=== PATIENT | female | born 1985 | race Two or more races ===

== ENCOUNTER 2021-01-18 21:27 | Inpatient (IN) | payer MEDICAID ==
[~2021-01-18] VITALS: Ht 157.5 cm; Wt 62.6 kg
[2021-01-18 22:20] VITALS: BP 97/61
--- NOTE | 2021-01-18 22:20 | NUR ---
MS OPHTHALMOLOGY ASSISTANT NOTE PT TRANSPORTED VIA GURNEY TO UNIT AT THIS TIME. PT IS ON BEDREST. PT STABLE ON ROOM AIR. NO SOB OR S/S OF RESPIRATORY DISTRESS NOTED. PT DENIES ANY PAIN OR DISCOMFORT AT THIS TIME. PT'S SKIN IS INTACT. IV ACCESS NOTED IN RAC #20, INTACT AND PATENT. PT ORIENTED TO STAFF, ROOM, AND UNIT. SAFETY MEASURES MAINTAINED. BED IN LOWEST LOCKED POSITION, HOB ELEVATED, SIDE RAILS UP X2. CALL LIGHT AND TABLE WITHIN REACH. WILL CONTINUE TO MONITOR.
[2021-01-18] MEDS ORDERED: HYDR-4209 PO (23:42)
[2021-01-18] MEDS ORDERED: DICY20TA11 PO (23:42)
[2021-01-18] MEDS ORDERED: IBUP-1955 PO (23:42)
[2021-01-19] MEDS ORDERED: ACETAMINOPHEN 650 MG/SUPP.RECT RC PRN (01:30)
[2021-01-19] MEDS ORDERED: IV D5/ 0.9% NACL 1,000 ML IV PRN (01:30)
[2021-01-19] MEDS ORDERED: ONDANSETRON HCL/PF 4 MG/2 ML VIAL IVP PRN (01:30)
[2021-01-19 02:19] VITALS: BP 97/61
[2021-01-19] MEDS: MORPHINE SULFATE INJ 4 MG/ML DISP.SYRIN IV PRN ×4 (02:45→22:22)
--- NOTE | 2021-01-19 02:45 | NUR ---
MS RN PAIN PT C/O SHARP ABDOMINAL PAIN, RATED 9/10 ON 0-10 PAIN SCALE. VSS. PER PT REQUEST, ADMINISTERED MORPHINE SULFATE 4 MG IV Q4H PRN FOR PAIN. WILL CONTINUE TO MONITOR.
[2021-01-19] MEDS ORDERED: PIPERACILLIN /TAZOBACTAM 3.375 G in IV D5W 50 ML IV ONE (03:00)
[2021-01-19] MEDS ORDERED: PIPERACILLIN /TAZOBACTAM 3.375 G VIAL IV ONE (03:06)
[2021-01-19] MEDS ORDERED: PIPERACILLIN /TAZOBACTAM 3.375 G in IV D5W 50 ML IV SCH (05:00)
[2021-01-19 06:27] LABS: BASOPHILS % (AUTO) 0.7 % (0.0-2.0); EOSINOPHILS % (AUTO) 1.8 % (0.0-6.0); HEMATOCRIT 35 % (33-45); HEMOGLOBIN 12.1 g/dL (11.5-14.8); LYMPHOCYTES # (AUTO) 1.6 /CMM (0.8-4.8); LYMPHOCYTES % (AUTO) 30.7 % (20.0-44.0); MEAN CORPUSCULAR HGB CONC 35 g/dl (31.0-36.0); MEAN CORPUSCULAR VOLUME 91 fL (82-100); MONOCYTES # (AUTO) 0.4 /CMM (0.1-1.30); MONOCYTES % (AUTO) 8.2 % (2.0-12.0); NEUTROPHILS % (AUTO) 58.6 % (43.0-81.0); PLATELET COUNT (AUTO) 170 /CMM (150-450); RED BLOOD CELL COUNT(AUTO) 3.81 MIL/uL (4.0-5.2); WHITE BLOOD COUNT (AUTO) 5.2 K/uL (4.3-11.0)
--- NOTE | 2021-01-19 06:30 | NUR ---
MS RN CLOSING NOTE PT IS AWAKE IN BED. A/O X4. PT STABLE ON ROOM AIR. NO SOB OR S/S OF RESPIRATORY DISTRESS NOTED. PT IS ON BEDREST. PT DENIES ANY PAIN OR DISCOMFORT AT THIS TIME. IV ACCESS IS INTACT, PATENT, AND FLUSHING WELL. ALL NEEDS HAVE BEEN MET. PAIN MANAGEMENT ADMINISTERED PER ORDER. SAFETY MEASURES MAINTAINED AT ALL TIMES. BED IN LOWEST LOCKED POSITION, HOB ELEVATED, SIDE RAILS UP X2. CALL LIGHT AND TABLE WITHIN REACH. WILL ENDORSE TO ONCOMING NURSE FOR GISELE.
[2021-01-19 06:58] LABS: ALBUMIN 3.4 g/dL (3.4-5.0); BILIRUBIN,TOTAL 1.5 mg/dL (0.2-1.0); CREATININE 0.6 mg/dL (0.6-1.3); PHOSPHORUS 3.6 mg/dL (2.5-4.9); POTASSIUM 3.4 mmol/L (3.5-5.1); TOTAL PROTEIN, SERUM 6.6 g/dL (6.4-8.2)
--- NOTE | 2021-01-19 07:25 | NUR ---
MS RN OPENING NOTES SEEN PATIENT IN BED, AWAKE AND VERBALLY RESPONSIVE. A/O X4, ABLE TO MAKE NEEDS KNOWN. BREATHING EVEN AND UNLABORED, TOLERATING ROOM AIR. COMPLAINT OF ABDOMINAL PAIN BUT PATIENT STATES THAT SHE CAN TOLERATE IT FOR NOW; ADVISED TO DO REPOSITIONING FOR PAIN RELIEF/PAIN MANAGEMENT, VERBALIZED UNDERSTANDING. ABLE TO AMBULATE TO THE BATHROOM. IV LINE IS INTACT AND PATENT, IVF INFUSING WELL. SAFETY PRECS IN PLACE. WILL CONTINUE TO MONITOR.
[2021-01-19 08:00] VITALS: BP 101/62
[2021-01-19] MEDS: PANTOPRAZOLE 40 MG VIAL IV SCH (08:23)
--- NOTE | 2021-01-19 09:32 | NUR ---
RN NOTES PATIENT SEEN BY DR. DIOP TODAY W/ ORDERS NOTED.
[2021-01-19] MEDS: POTASSIUM CL. PREMIX PERIPHER. 50 ML IV SCH ×2 (09:57→11:20)
[2021-01-19] MEDS: PIPERACILLIN /TAZOBACTAM 3.375 G in IV D5W 100 ML IV SCH ×2 (10:19→18:08)
--- NOTE | 2021-01-19 11:17 | NUR ---
RN NOTES PATIENT FOR SCHEDULED MRCP TODAY; CHECKLIST COMPLETED. DR. DIOP SPOKE W/ PATIENT AND INFORMED HER OF POSSIBLE PROCEDURE (LAP DYLON POSSIBLE EX-LAP) FOR TOMORROW. PROCEDURE CONSENT SIGNED BY PATIENT AND PLACED IN CHART, WILL ENDORSE CHECKLIST LATER.
--- NOTE | 2021-01-19 12:00 | NUR ---
RN NOTES SEEN BY ESTEPHANIA MCGRATH NP; UPDATED W/ DR. DIOP'S RECOMMENDATIONS. PATIENT ALSO AWARE AND AGREES W/ PLAN OF CARE.
--- NOTE | 2021-01-19 14:19 | NUR ---
RN NOTES RECEIVED CALL FROM [facility]; WILL DADO OPERATOR PATIENT IN ABOUT 30 MINUTES
--- NOTE | 2021-01-19 14:34 | NUR ---
RN NOTES PATIENT PICKED UP FOR MRCP PROCEDURE VIA WHEELCHAIR, ACCOMPANIED BY MARISSA LOGAN
--- NOTE | 2021-01-19 15:10 | NUR ---
RN NOTES PATIENT RETURNED FROM MRCP PROCEDURE VIA WHEELCHAIR, ACCOMPANIED BY MARISSA LOGAN
[2021-01-19 16:00] VITALS: BP 96/64
--- NOTE | 2021-01-19 19:15 | NUR ---
RN NOTES PATIENT CURRENTLY IN BED RESTING, AT BEDSIDE, NOT IN ACUTE DISTRESS. IV ATB INFUSING WELL AT THIS TIME; PREVIOUSLY GIVEN PAIN MEDICATION W/ GOOD EFFECT. ENDORSED TO ROTARY DUMP OPERATOR FOR GISELE. URINE SAMPLE COLLECTED AND PLACED IN THE REFRIGERATOR FOR TEST. CONSENT FORMS SIGNED AND PLACED IN THE CHART.
--- NOTE | 2021-01-19 19:30 | NUR ---
MS RN NOTES Patient is awake, A&Ox4. No distress noted at this time. Kept NPO. Urine collected for test put in fridge. Patient can verbalize needs. Call light within reach. at bedside.
[2021-01-19 20:26] VITALS: BP 102/68
[2021-01-20] MEDS: PIPERACILLIN /TAZOBACTAM 3.375 G in IV D5W 100 ML IV SCH ×3 (02:38→17:55)
[2021-01-20] MEDS: MORPHINE SULFATE INJ 4 MG/ML DISP.SYRIN IV PRN ×2 (04:29→10:07)
--- NOTE | 2021-01-20 06:42 | NUR ---
RN CLOSING NOTES Patient A&Ox4. VSS. Slept well throughout the night but easily rousable. Kept NPO. Occasionally asking for pain medication for abdominal pain -effective in managing pain. D5NS fluids running at 90cc/hr. No ase to IV ABX. Able to ambulate to bathroom by self. No signs of distress noted.
[2021-01-20 06:59] LABS: BASOPHILS % (AUTO) 0.5 % (0.0-2.0); HEMATOCRIT 33 % (33-45); HEMOGLOBIN 11.5 g/dL (11.5-14.8); LYMPHOCYTES # (AUTO) 1.7 /CMM (0.8-4.8); LYMPHOCYTES % (AUTO) 25.7 % (20.0-44.0); MEAN CORPUSCULAR HGB CONC 35 g/dl (31.0-36.0); MEAN CORPUSCULAR VOLUME 91 fL (82-100); MONOCYTES # (AUTO) 0.4 /CMM (0.1-1.30); MONOCYTES % (AUTO) 6.1 % (2.0-12.0); NEUTROPHILS # (AUTO) 4.3 /CMM (1.8-8.9); NEUTROPHILS % (AUTO) 65.7 % (43.0-81.0); PLATELET COUNT (AUTO) 160 /CMM (150-450); RED BLOOD CELL COUNT(AUTO) 3.64 MIL/uL (4.0-5.2); WHITE BLOOD COUNT (AUTO) 6.6 K/uL (4.3-11.0)
[2021-01-20 07:09] LABS: ALBUMIN 3.3 g/dL (3.4-5.0); BILIRUBIN,TOTAL 1.3 mg/dL (0.2-1.0); CALCIUM, SERUM 7.9 mg/dL (8.5-10.1); CREATININE 0.7 mg/dL (0.6-1.3); POTASSIUM 3.5 mmol/L (3.5-5.1); TOTAL PROTEIN, SERUM 6.5 g/dL (6.4-8.2)
--- NOTE | 2021-01-20 07:15 | NUR ---
ms rn received on bed, awake,alert,oriented x4, patient has cholelitiasis w/ abd pain, for sx today by dr. fowler
[2021-01-20] MEDS: PANTOPRAZOLE 40 MG VIAL IV SCH (09:00)
--- NOTE | 2021-01-20 09:00 | NUR ---
rn npo at this time, due meds given, iv.
--- NOTE | 2021-01-20 10:00 | NUR ---
ms rn malcolm chisholm called for sx orders, for sx today at 1300.
[2021-01-20] MEDS ORDERED: BUPIVACAINE MPF 0.5% W/EPI INJ 30 ML VIAL ONE (10:33)
[2021-01-20] MEDS ORDERED: LIDOCAINE 1% INJ 50 ML MDV IJ ONE (10:34)
--- NOTE | 2021-01-20 12:45 | NUR ---
ms rn patient went down to or for surgery,all needs attended.
[2021-01-20] MEDS ORDERED: FENTANYL PF 250MCG/5ML AMPUL ONE (13:08)
[2021-01-20] MEDS ORDERED: HYDROMORPHONE INJ 2 MG/ML DISP.SYRIN ONE (13:08)
[2021-01-20] MEDS ORDERED: FAMOTIDINE/PF INJ 20 MG/2 ML VIAL IV ONE (13:09)
[2021-01-20] MEDS ORDERED: MIDAZOLAM HCL 2 MG/2ML VIAL ONE (13:09)
[2021-01-20] MEDS ORDERED: CELLULOSE,OXIDIZED 1 EA PACK MC ONE (14:35)
--- NOTE | 2021-01-20 16:19 | NUR ---
ms rn patient just came in from rr,awake,alert,oriented x4,not in any form of distress, respirations even and unlabored,no sob noted,denies pain at this time, sx site dressings dry and intact, will monitor patient's condition.
[2021-01-20] MEDS ORDERED: ONDANSETRON HCL/PF 4 MG/2 ML VIAL IVP PRN (16:58)
[2021-01-20] MEDS ORDERED: IV LR 1000 ML 1,000 ML IV PRN (17:30)
[2021-01-20] MEDS: HYDROMORPHONE 1 MG/1 ML DISP.SYRIN IV PRN ×2 (17:55→21:09)
--- NOTE | 2021-01-20 18:05 | NUR ---
ms rn on bed, no distress noted, dressing dry and intact.
[2021-01-20 20:00] VITALS: BP 110/67
--- NOTE | 2021-01-20 20:08 | NUR ---
MS RN OPENING NOTES: RECEIVED PATIENT AWAKE IN BED, NO COMPLAIN OF PAIN AND DISCOMFORT, ACCOMPANIED BY , BED IN LOW POSITION, CALL LIGHTS WITHIN REACH, ON CLEAR LIQUID, AMBULATORY WITH SUPERVISION, SKIN IS INTACT, WITH IV LINE ON LAC WITH D5LR@125ML/HR. PATIENT KEPT CLEAN AND DRY. ALL NEEDS MET, WILL CONTINUE TO MONITOR.
[2021-01-21] MEDS: PIPERACILLIN /TAZOBACTAM 3.375 G in IV D5W 100 ML IV SCH ×3 (02:45→18:00)
[2021-01-21] MEDS: HYDROMORPHONE 1 MG/1 ML DISP.SYRIN IV PRN ×4 (02:51→17:32)
[2021-01-21 05:56] LABS: BASOPHILS % (AUTO) 0.3 % (0.0-2.0); EOSINOPHILS % (AUTO) 0.1 % (0.0-6.0); HEMATOCRIT 33 % (33-45); HEMOGLOBIN 11.4 g/dL (11.5-14.8); LYMPHOCYTES % (AUTO) 14.2 % (20.0-44.0); MEAN CORPUSCULAR HGB CONC 35 g/dl (31.0-36.0); MEAN CORPUSCULAR VOLUME 91 fL (82-100); MONOCYTES # (AUTO) 0.4 /CMM (0.1-1.30); NEUTROPHILS # (AUTO) 5.6 /CMM (1.8-8.9); NEUTROPHILS % (AUTO) 79.4 % (43.0-81.0); PLATELET COUNT (AUTO) 165 /CMM (150-450); RED BLOOD CELL COUNT(AUTO) 3.61 MIL/uL (4.0-5.2); WHITE BLOOD COUNT (AUTO) 7.1 K/uL (4.3-11.0)
[2021-01-21 06:28] LABS: CREATININE 0.6 mg/dL (0.6-1.3); MAGNESIUM 1.8 mg/dL (1.8-2.4); PHOSPHORUS 3.3 mg/dL (2.5-4.9); POTASSIUM 3.5 mmol/L (3.5-5.1)
--- NOTE | 2021-01-21 06:48 | NUR ---
MS RN CLOSING NOTES: PATIENT AWAKE IN BED, BED IN LOW POSITION, CALL LIGHTS WITHIN REACH, NO COMPLAIN OF PAIN AND DISCOMFORT AT THIS TIME, PATIENT IS AMBULATORY WITH SUPERVISION ON CLEAR LIQUID, WITH IV LINE AT [id number] INFUSING WELL.,A/OX4 ABLE TO MAKE NEEDS KNOWN, PATIENT KEPT CLEAN AND DRY, ALL NEEDS ATTENDED, ENDORSE TO INCOMING SHIFT.
--- NOTE | 2021-01-21 07:26 | NUR ---
ms rn received on bed, awake,alert,oriented x4,respirations even and unlabored,no sob noted, lungs are clear,abdomen soft,positive bowel sounds,s/p lap luh w/ sx incisions dressing dry and intact, denies pain at this time, all needs attended.
[2021-01-21 08:00] VITALS: BP 96/51
--- NOTE | 2021-01-21 09:00 | NUR ---
ms arshad breakfast served,due meds given, tolerated well.
[2021-01-21] MEDS: PANTOPRAZOLE 40 MG VIAL IV SCH (09:12)
[2021-01-21 16:00] VITALS: BP 101/61
--- NOTE | 2021-01-21 17:00 | NUR ---
ms rn texted dr. fowler w/ order to advance to solid food and if tolerated, may go home today.
--- NOTE | 2021-01-21 17:10 | NUR ---
ms rn dinner served,tolerated well. instructions given, to have a follow up w/ malcolm in one week. ready to go home w/ family.
--- NOTE | 2021-01-21 18:20 | NUR ---
ms rn patient went home accompanied by ,all needs attended.
== END 2021-01-21 18:20 | disposition home or self-care (01) | DRG 263 ==
LOC: MED 22:13
PROVIDERS: ADMIT Internal Medicine; ATTEND Nurse Practitioner Acute Care
PROC: 0FT44ZZ Resection of Gallbladder, Percutaneous Endoscopic Approach (ICD-10-PCS; principal; 2021-01-20)
DX: K80.62 Calculus of gallbladder and bile duct with acute cholecystitis without obstruction (principal); K82.1 Hydrops of gallbladder; E11.65 Type 2 diabetes mellitus with hyperglycemia; K66.0 Peritoneal adhesions (postprocedural) (postinfection); N39.0 Urinary tract infection, site not specified; B96.89 Other specified bacterial agents as the cause of diseases classified elsewhere; E87.6 Hypokalemia; R94.5 Abnormal results of liver function studies; Z83.3 Family history of diabetes mellitus
CPT/HCPCS: 36415; 74181-TC; 80048-TC; 80053-TC; 80061-TC; 83690-TC; 83735-TC; 84100-TC; 84703-TC; 85025-TC; 87081-TC; 88304-TC; A6253; C9113; G0378; J0690; J1100; J1170; J1885; J2250; J2270; J2405; J2543; J2704; J3010; J3480; J3490; J7042; J7060; J7120